=== PATIENT | female | born 1940 | race Caucasian/White ===

== ENCOUNTER → 2018-06-15 | Outpatient (CLI) | payer OTHER, MEDICARE | LOC: FIMAGING 10:46 | PROVIDERS: ATTEND Internal Medicine | DX: Z12.31 Encounter for screening mammogram for malignant neoplasm of breast (principal) ==

== ENCOUNTER 2018-07-06 16:12 | Emergency (ER) | payer OTHER, MEDICARE ==
[2018-07-06] MEDS ORDERED: IBUPROFEN 600 MG TAB PO ONE (16:31)
--- NOTE | 2018-07-06 16:33 | EDPHY ---
H & P Stated Complaint: rt hand pain Time Seen by Provider: 07/06/18 16:18 HPI/ROS: CHIEF COMPLAINT: Right wrist pain HISTORY OF PRESENT ILLNESS: 78-year-old female presents with right wrist pain. Onset of right wrist pain 1 hr ago while trying to open a lid. The pain is moderate and increases with movement. Associated with swelling. No known injury and no prior similar symptoms. Took ibuprofen 200 mg prior to arrival. ROS: No numbness, weakness, bleeding, syncopal episode, other injury. Source: Patient - Medical/Surgical History Other PMH: DIABETES MELLITUS TYPE I, OSTEOPOROSIS, HYPERTENSION - Physical Exam Exam: Alert and oriented, pleasant Extremities: Right wrist-tenderness and swelling over the dorsal aspect of the wrist, pain with radial deviation of wrist Skin: Intact, no erythema or warmth Neuro: Motor and sensory intact Vascular: Capillary refill brisk distally Constitutional: Initial Vital Signs Temperature (C) 36.5 C 07/06/18 16:20 Heart Rate 70 07/06/18 16:20 Respiratory Rate 14 07/06/18 16:20 Blood Pressure 164/64 H 07/06/18 16:20 O2 Sat (%) 100 07/06/18 16:20 O2 Delivery Mode Room Air Medical Decision Making - Diagnostics Imaging Results: Imaging Impressions Hand X-Ray 07/06/18 16:32 Impression: DIP osteoarthritis ,worst involving the second DIP joint. ED Course/Re-evaluation: Ibuprofen given. X-ray reveals no evidence of fracture. A thumb spica splint was placed. - Data Points Medications Given: Discontinued Medications Ibuprofen (Motrin) 400 mg PO EDNOW ONE Stop: 07/06/18 16:32 Last Admin: 07/06/18 16:35 Dose: 400 mg Departure - Departure Disposition: Home, Routine, Self-Care Clinical Impression: Tenosynovitis, de Quervain Condition: Good Instructions: Tenosynovitis (ED) Additional Instructions: Ibuprofen 600 mg 3 times daily while the pain persists. Wear splint for comfort. Referrals: Remi Mendenhall MD [Medical Doctor] - 5-7 days, if not improved (Call to make an appointment. )
[2018-07-06] MEDS ORDERED: IBUPROFEN 200 MG TAB PO ONE (16:36)
[2018-07-06 17:28] VITALS: BP 153/69
== END 2018-07-06 17:33 | disposition home or self-care (01) ==
DX: M65.4 Radial styloid tenosynovitis [de Quervain] (principal)
CPT/HCPCS: 73130; 99283; L3807